=== PATIENT | male | born 1985 | race Two or more races ===

== ENCOUNTER 2017-11-06 05:18 | Inpatient (IN) | payer OTHER ==
[2017-11-06] VITALS (16 sets, daily range): BP systolic 124–167; BP diastolic 60–87
[~2017-11-06] VITALS: Ht 172.7 cm; Wt 88.5 kg
[2017-11-06] MEDS ORDERED: GABAPENTIN400 MG ORAL (06:13)
[2017-11-06] MEDS ORDERED: OXYBUTYNIN CHLOR5 M1 ORAL (06:13)
[2017-11-06] MEDS ORDERED: Neostigmine 1mg/ml 10ml Inj ONE ×2 (06:36→07:00)
[2017-11-06] MEDS ORDERED: EPINEPHrine 1mg/1ml Amp ONE (06:59)
[2017-11-06] MEDS ORDERED: Thrombin 5000 units TOPIC ONE (06:59)
[2017-11-06] MEDS ORDERED: LR 1000ml 1,000 ML IVLG SCH (06:59)
[2017-11-06] MEDS ORDERED: DiphenhydrAMINE 50mg/ml Inj IVP PRN ×2 (07:00→13:30)
[2017-11-06] MEDS ORDERED: Propofol 1,000mg/ 100ml btl IV ONE (07:00)
[2017-11-06] MEDS ORDERED: Norco 5mg/325mg tab ORAL PRN (07:00)
[2017-11-06] MEDS ORDERED: fentaNYL 100 mcg/2 mL IV PRN (07:00)
[2017-11-06] MEDS ORDERED: Zemuron 50mg/5ml Inj IV ONE (07:00)
[2017-11-06] MEDS ORDERED: Midazolam 2mg/2ml Inj IVP PRN (07:00)
[2017-11-06] MEDS ORDERED: fentaNYL 100 mcg/2 mL IV ONE (07:00)
[2017-11-06] MEDS ORDERED: LR 1000ml ONE (07:00)
[2017-11-06] MEDS ORDERED: Labetalol 5mg/ml 20ml vial IV PRN (07:00)
[2017-11-06] MEDS ORDERED: oxyCODONE HCL/Acetaminophen 5/325mg ORAL PRN (07:00)
[2017-11-06] MEDS ORDERED: Atropine Inj 1mg/10ml Syr IV PRN (07:00)
[2017-11-06] MEDS ORDERED: Lidocaine 1% MPF 10mg/ml 5ml ONE (07:00)
[2017-11-06] MEDS ORDERED: NS Irrig 1000ml ONE (07:00)
[2017-11-06] MEDS ORDERED: Sterile Water Irrig 1000ml IRRIG ONE (07:00)
[2017-11-06] MEDS ORDERED: HYDROcodone/Acetamin 7.5/325 tab ORAL PRN (07:00)
[2017-11-06] MEDS ORDERED: Thrombin 5000 units spray kit TOPIC ONE (07:00)
[2017-11-06] MEDS ORDERED: Bupivacaine 0.5% Inj 30 ml vial INJ ONE ×2 (07:00→07:06)
[2017-11-06] MEDS ORDERED: Glycopyrrolate 0.2mg/ml 1ml Vial ONE (07:00)
[2017-11-06] MEDS ORDERED: Ketorolac 30mg Inj IV PRN ×2 (07:00)
[2017-11-06] MEDS ORDERED: LORazepam Inj 2mg/ml 1ml IV PRN (07:00)
[2017-11-06] MEDS ORDERED: Dexamethasone 4mg/ml vial ONE (07:00)
[2017-11-06] MEDS ORDERED: Lidocaine 1% Plain 30 ml INJ ONE (07:00)
--- NOTE | 2017-11-06 07:02 | Anethesia Preoperative Eval ---
Anesthesia Pre-op PMH/ROS General Date of Evaluation: Nov 06, 2017 Time of Evaluation: 07:41 Anesthesiologist: Linda ASA Score: ASA 3 Mallampati Score Class I : Soft palate, uvula, fauces, pillars visible Class II: Soft palate, uvula, fauces visible Class III: Soft palate, base of uvula visible Class IV: Only hard plate visible Mallampati Classification: Class II Surgeon: Nestor Diagnosis: Neck Pain Surgical Procedure: Posterior C6-7 Screw Remova Anesthesia History: none Family History: no anesthesia problems Allergies: Coded Allergies: No Known Allergies (Unverified , 11/05/17) Medications: see eMAR Past Medical History Neurologic/Psychiatric: Reports: other - Paraplegic Other: obesity - BMI 30 PSxH Narrative: C/S SX Anesthesia Pre-op Phys. Exam Physician Exam Last Vital Signs Date Time Temp Pulse Resp B/P (MAP) Pulse Ox O2 Delivery O2 Flow Rate FiO2 11/06/17 06:01 97.8 57 18 124/60 98 Room Air Constitutional: NAD Neurologic: CN 2-12 intact Cardiovascular: RRR Respiratory: CTA Gastrointestinal: S/NT/ND Airway Exam Mallampati Score: Class II MO: full ROM: limited Teeth: intact Anesthesia Pre-op A/P Risk Assessment & Plan Assessment: ASA 3 Plan: GA, BIS, GlideScope Status Change Before Surgery: No Pre-Antibiotics Dru Grams Ancef IV Given Within 1 Hr of Incision: Yes Time Given: 08:06 Donell Mckeon MD Nov 06, 2017 07:02
[2017-11-06] MEDS ORDERED: Gelfoam Absorbable 1gm powder pkt TOPIC ONE (07:06)
--- NOTE | 2017-11-06 07:47 | Pre-Procedure Note/Attestation ---
Pre-Procedure Note/Attestation Complete Prior to Procedure Planned Procedure: bilateral Procedure Narrative: removal of hardware. possible fusion Indications for Procedure Pre-Operative Diagnosis: loose instrumentation Attestation I attest that I discussed the nature of the procedure; its benefits; risks and complications; and alternatives (and the risks and benefits of such alternatives ), prior to the procedure, with the patient (or the patient's legal pest control service representative). I attest that, if there was a reasonable possibility of needing a blood transfusion, the patient (or the patient's legal pest control service representative) was given the [facility] standardized written summary, pursuant to the [place] Blood Safety Act ([place] Health and Safety Code # 1645, as amended). I attest that I re-evaluated the patient just prior to the surgery and that there has been no change in the patient's H&P, except as documented below: JODY BROWER Nov 06, 2017 07:47
[2017-11-06] MEDS ORDERED: Bacitracin 50000 Units Vial ONE (08:04)
[2017-11-06] MEDS ORDERED: Bacitracin Oint 15gm Tube TOPIC ONE (08:04)
--- NOTE | 2017-11-06 08:53 | Immediate Post-Op Evaluation ---
Immediate Post-Op Evalulation Immediate Post-Op Evalulation Procedure: Posterior C6-7 Screw Removal Date of Evaluation: Nov 06, 2017 Time of Evaluation: 11:18 IV Fluids: 1100LR Blood Products: 0 Estimated Blood Loss: 25 Urinary Output: 200 Blood Pressure Systolic: 156 Blood Pressure Diastolic: 81 Pulse Rate: 78 Respiratory Rate: 16 O2 Sat by Pulse Oximetry: 97 Temperature (Fahrenheit): 97.1 Pain Score (1-10): 2 Nausea: No Vomiting: No Complications 0 Patient Status: awake, reacts, patent, extubated, none Hydration Status: adequate Dru Grams Ancef IV Given Within 1 Hr of Incision: Yes Time Given: 08:06 Donell Mckeon MD Nov 06, 2017 08:53
--- NOTE | 2017-11-06 11:08 | Brief Operative Note ---
Immediate Post Operative Note Operative Note Chief Complaint: R arm and shoulder pain Pre-op Diagnosis: loose instrumentation Procedure: Maco C7 screws removal and C6-7 on-lay fusion Post-op Diagnosis: Loose instrumentation Post-op Diagnosis: same as pre-op Findings: consistent w/pre-op dx studies Surgeon: Maki Brower Plant Attendant: Dia Reddy Anesthesiologist: Amberly Cabezas Anesthesia: general Specimen: none Complications: none Condition: stable Fluids: IVF Estimated Blood Loss: minimal Drains: none Implant(s) used?: Yes JODY BROWER Nov 06, 2017 11:08
[2017-11-06] MEDS: Hydromorphone 0.5mg/0.5ml inj IVP PRN ×3 (11:52→12:44)
[2017-11-06] MEDS ORDERED: Hydromorphone 0.5mg/0.5ml inj IVP PRN (13:30)
[2017-11-06] MEDS ORDERED: Chloraseptic Spray 20mL Bottle ORAL PRN (15:30)
[2017-11-06] MEDS ORDERED: HYDROmorphone 1mg/ml Carpuject IVP ONE (15:30)
[2017-11-06] MEDS: HYDROmorphone 1mg/ml Carpuject IVP PRN ×2 (15:41→21:17)
--- NOTE | 2017-11-06 15:41 | Diagnostic Imaging Report ---
Indication: Pain, intraoperative Technique: Intraoperative images Comparison: none Findings: Initial images demonstrate posterior fusion hardware extending from C4 through C7, anterior fusion hardware extending from C4 through C6 with ankylosis of the intervening disc. Subsequent images demonstrate removal of the C7 pedicle screws and intervening rods Impression: Intraoperative imaging, as described
[2017-11-06] MEDS ORDERED: Dronabinol 2.5mg Cap ORAL ONE (15:45)
[2017-11-06] MEDS ORDERED: Dronabinol 2.5mg Cap ORAL SCH (16:00)
[2017-11-06] MEDS ORDERED: Chloraseptic Spray 20mL Bottle ORAL ONE (16:00)
[2017-11-06] MEDS: ceFAZolin sod 1 GM in NS 55 ML IV SCH (17:34)
[2017-11-06] MEDS: LR 1000ml 1,000 ML IV SCH (17:35)
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
[2017-11-07] VITALS: BP 114/57
[2017-11-07] MEDS: ceFAZolin sod 1 GM in NS 55 ML IV SCH ×2 (00:50→11:50)
[2017-11-07] MEDS: HYDROmorphone 1mg/ml Carpuject IVP PRN ×3 (01:01→06:21)
[2017-11-07] MEDS ORDERED: Dronabinol 2.5mg Cap ORAL SCH (03:45)
[2017-11-07 04:00] VITALS: BP 100/52
[2017-11-07 08:00] VITALS: BP 111/57
[2017-11-07] MEDS: oxyCODONE 5mg IR tab ORAL PRN ×2 (09:07→20:20)
[2017-11-07] MEDS: Oxybutynin 5mg tab ORAL SCH ×3 (09:07→18:49)
[2017-11-07] MEDS ORDERED: PERCOCET 10-321 EAC1 PO (10:38)
[2017-11-07] MEDS: Hydromorphone 0.5mg/0.5ml inj IVP PRN ×2 (11:50→15:37)
[2017-11-07 12:00] VITALS: BP 92/49
[2017-11-07] MEDS: LR 1000ml 1,000 ML IV SCH (13:54)
[2017-11-07 16:00] VITALS: BP 96/51
[2017-11-07] MEDS ORDERED: Tubing IV Secondary IV ONE (21:14)
[2017-11-08 09:00] VITALS: BP 100/52
--- NOTE | 2017-11-08 09:00 | 48 Hour Post Anesthesia Eval ---
Post Anesthesia Evaluation Procedure: Posterior C6-7 Screw Removal Date of Evaluation: Nov 07, 2017 Time of Evaluation: 08:23 Blood Pressure Systolic: 100 0: 52 Pulse Rate: 64 Respiratory Rate: 19 Temperature (Fahrenheit): 98.6 O2 Sat by Pulse Oximetry: 98 Airway: patent Nausea: No Vomiting: No Pain Intensity: 2 Hydration Status: adequate Cardiopulmonary Status: Stable Mental Status/LOC: patient returned to baseline Follow-up Care/Observations: 0 Post-Anesthesia Complications: 0 Follow-up care needed: ready to discharge Donell Mckeon MD Nov 08, 2017 09:00
--- NOTE | 2017-11-08 10:42 | Discharge Summary ---
Discharge Summary Hospital Course Date of Admission Nov 06, 2017 at 05:18 Date of Discharge Nov 07, 2017 at 21:15 Admitting Diagnosis HPI Wesly Brunson is a 32 year old male who was admitted on Nov 06, 2017 at 05:18 for C6-7 Non Fusion Lower Screws Hospital Course [id number] Discharge Discharge Disposition Patient was discharged to Home (01) Discharge Diagnoses: Philomena Sanchez NP Nov 08, 2017 10:41
--- NOTE | 2017-11-08 12:55 | Progress Note ---
DATE: 11/07/2017 ACUTE PAIN MANAGEMENT PHYSICIAN PROGRESS NOTE MEDICATIONS: Medication administration record reviewed. Medications include Chloraseptic spray, Protonix, Roxicodone, Ditropan, Neurontin, Benadryl, Catapres and Mylanta. LABORATORY STUDIES: No interval laboratory studies. OBJECTIVE: VITAL SIGNS: Afebrile, pulse 58, respirations 19, blood pressure 111/57, and oxygen saturation 97% on room air. I spent over 60 minutes in consultation today. I saw the patient at bedside. I discussed the case with the surgeon, Dr. Baez. I spoke with the physical therapist and the nurse RNVasile . Overall, the patient is progressing well after his neck surgery. The patient's baseline neurologic status is intact. The patient is paraplegic with very limited movement of his upper extremities preoperatively. The posterior neck dressing is clean and dry. The patient is swallowing, breathing, and phonating within normal limits. The patient's pain levels are well managed on his current analgesic plan. A prescription was left for outpatient usage. The Rodriguez catheter remains in place to ease urinary voiding here in the hospital. At home, the patient's mother and family regularly straight catheterization the patient's bladder. The patient is alert and oriented x3. The patient is requesting to discharge home and the charge nurse, RNTabby will help arrange for home transportation for this wheelchair-bound patient. The patient will follow up in the outpatient clinic per Dr. Baez's schedule. Burke Horton M.D. DR: HOA JOB#: [id number] CC:
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
--- NOTE | 2017-11-09 01:00 | Discharge Summary 2 SIG ---
DATE OF ADMISSION: 11/06/2017 DATE OF DISCHARGE: 11/07/2017 BRIEF HOSPITAL COURSE: The patient is a 32-year-old paraplegic wheelchair-bound gentleman, who was admitted on 11/06/2017 and underwent bilateral C7 screw removal and C6-C7 onlay fusion on 11/06/[address] Baez. Postoperatively, he was seen by Dr. Horton for postop pain management. He was given incentive spirometry and was placed on Protonix for GI prophylaxis. He was placed on postop cervical diet. He was seen by physical therapy. Rodriguez catheter was removed. The patient was eventually discharged home. FINAL DIAGNOSES: 1. Right arm and shoulder pain with loose instrumentation status post bilateral C7 screw removal and C6-C7 onlay fusion. 2. Paraplegia. DISPOSITION: The patient was discharged home. DISCHARGE MEDICATIONS: Refer to medication list. DISCHARGE INSTRUCTIONS: Follow up with surgeon in a week. Emilie Baez M.D. I have been assigned to dictate discharge summary on this account and I was not involved in the patient's management. Philomena Sanchez N.P. DR: TROY JOB#: [id number] CC:
--- NOTE | 2017-11-09 03:30 | Discharge Summary ---
DATE OF ADMISSION: 11/06/2017 DATE OF DISCHARGE: 11/07/2017 ATTENDING PHYSICIAN AND SURGEON: Emilie Baez M.D. CONSULTING PHYSICIAN: Burke Horton M.D., Pain Management. ADMITTING DIAGNOSIS: Cervical spine pain with loose instrumentation. POSTOPERATIVE DIAGNOSIS: Cervical spine pain with loose instrumentation, status post revision surgery. HOSPITAL COURSE: The patient was admitted on 11/06/2017 for elective revision posterior cervical spine surgery with removal of hardware for pain. The patient underwent surgery with Dr. Baez and assisting doctor, Dr. Reddy without complications. After the operating room procedure, the patient was transferred to the recovery room where the patient did well and was then transferred to the Orthopedic Surgery floor. The patient had serial monitoring and routine nursing care. The patient's pain was adequately controlled and his vital signs are stable. He was discharged back to home to the care of his mother and family via [facility]. There were no complications. Burke Horton M.D. DR: HAZEL JOB#: [id number] CC:
--- NOTE | 2017-11-21 19:19 | History & Physical ---
History and Physical History & Physicial the patient called and said that there was drainage from the cervical wound. We asked him to come to the ER right away and he came in today around noon. He was seen by the ER doctor and was sent for an MRI with and without contrast and blood work. He was admitted and was given a dose of Vanco abx. I saw him tonight and he is afebrile and comfortable. His neuro exam is as usual and moves his upper extremities as usual. His Right arm pain is resolved. His wound appears to have minimal serosengous fluid (No Puss noted. No infection smell). There is superficial wound surface appears raw with the scab removed. The wound is not open other than a small part at the lower part that with pressure expresses serosngous bloody fluid. No redness in the skin outside of the wound area. A/P The patient is Afeb and VSS. Neuro intact. His WBC is 12.5 and high Neutrophils. We will culture any fluid from the wound and place patient on vanco/zosyn and observe tonight. MRI showed some small fluid collection epi- facia and no deep enhancement. The radiologist report was also reviewed. DVT studies were done as well and pending official report but preliminary impression was neg. Appreciate Dr. Tang's input as well. JODY BROWER Nov 21, 2017 19:19
== END 2017-11-07 21:15 | disposition home or self-care (01) | DRG 472 ==
LOC: SDSOVERFLO 05:18 → 3E 13:48
PROC: 0RG10J1 Fusion of Cervical Vertebral Joint with Synthetic Substitute, Posterior Approach, Posterior Column, Open Approach (ICD-10-PCS; principal; 2017-11-06 07:30)
PROC: 0RP104Z Removal of Internal Fixation Device from Cervical Vertebral Joint, Open Approach (ICD-10-PCS; principal; 2017-11-06 07:30)
PROC: 4A11X4G Monitoring of Peripheral Nervous Electrical Activity, Intraoperative, External Approach (ICD-10-PCS; principal; 2017-11-06 07:30)
DX: T84.226A Displacement of internal fixation device of vertebrae, initial encounter (principal); G82.20 Paraplegia, unspecified; Z99.3 Dependence on wheelchair; N31.9 Neuromuscular dysfunction of bladder, unspecified; Y83.8 Other surgical procedures as the cause of abnormal reaction of the patient, or of later complication, without mention of misadventure at the time of the procedure; Y92.89 Other specified places as the place of occurrence of the external cause; E66.9 Obesity, unspecified; Z68.30 Body mass index [BMI] 30.0-30.9, adult
CPT/HCPCS: 36415; 72040; 76001; 86850; 86900; 86901; 87081; 94003; 94150; J2405; J2710

== ENCOUNTER 2017-11-21 11:21 | Inpatient (IN) | payer OTHER ==
[~2017-11-21] VITALS: Ht 172.7 cm; Wt 88.5 kg
[~2017-11-21 11:21] MED LIST: GABAPENTIN400 MG ORAL; OXYBUTYNIN CHLOR5 M1 ORAL; PERCOCET 10-321 EAC1 PO
[2017-11-21] MEDS ORDERED: Ampicillin/Sulbactam Sod 3 GM in NS 110 ML IVPB ONE (13:15)
[2017-11-21] MEDS ORDERED: Vancomycin 1.5gm/D5W 250ml 250 ML IVPB ONE (13:15)
[2017-11-21] MEDS ORDERED: Unasyn 3gm Inj ONE (13:17)
--- NOTE | 2017-11-21 13:32 | Emergency Room Report ---
History of Present Illness General Chief Complaint: Skin Rash/Abscess Source: Patient Present Illness HPI 32-year-old male presents with "possible infection" to area of procedure on November 06. Surgery port her review of EMR was evaluation of "elective revision posterior cervical spine surgery with removal of hardware for pain." Known paraplegia, wheelchair bound. Endorses subjective chills at home No pain to site Foul smelling yellow/bloody discharge noted on wound dressing change Not on Abx Allergies: Coded Allergies: No Known Allergies (Unverified , 11/05/17) Patient History Past Medical History: other - paraplegia Past Surgical History: none Pertinent Family History: none Social History: Denies: smoking, alcohol use, drug use Immunizations: UTD Reviewed Nursing Documentation: PMH: Agreed, PSxH: Agreed Nursing Documentation-PMH Past Medical History: No Stated History Hx Cardiac Problems: No Hx Cancer: No Hx Gastrointestinal Problems: No Hx Neurological Problems: Yes Hx Paralysis: Yes - bilateral lower extremities;bilateral hands Hx Spinal Cord Injury: Yes Review of Systems All Other Systems: negative except mentioned in HPI Physical Exam Vital Signs Date Time Temp Pulse Resp B/P (MAP) Pulse Ox O2 Delivery O2 Flow Rate FiO2 11/21/17 11:28 73 17 115/80 98 Room Air Sp02 EP Interpretation: reviewed, normal General Appearance: normal inspection, well appearing, no apparent distress, alert, GCS 15, non-toxic, other - Wheelchair bound Head: normocephalic, atraumatic Eyes: bilateral eye PERRL, bilateral eye EOMI ENT: normal ENT inspection, hearing grossly normal, normal pharynx, no angioedema, normal voice, TMs + canals normal, uvula midline, moist mucus membranes Neck: normal inspection, full range of motion, supple, thyroid normal, no meningismus, no bony tend Respiratory: normal inspection, lungs clear, normal breath sounds, no rhonchi, no respiratory distress, no retraction, no accessory muscle use, no wheezing, speaking full sentences Cardiovascular #1: regular rate, rhythm, no edema, no JVD, normal capillary refill Gastrointestinal: normal inspection, normal bowel sounds, non tender, soft, no mass, no peritonitis, non-distended, no guarding, no hernia, no pulsatile mass Genitourinary: no CVA tenderness Musculoskeletal: normal inspection, back normal, normal range of motion, no calf tenderness, pelvis stable, Crystal's Sign negative Neurologic: normal inspection, alert, oriented x3, responsive, senior system operator III-XII nml as tested, cerebellar normal, normal gait, speech normal Psychiatric: normal inspection, judgement/insight normal, mood/affect normal, no suicidal/homicidal ideation, no delusions Skin: other - Posterior neck: dressing removed, soaked in yellowish/bloody foul smelling discharge. Wound itself warm to touch. No active oozing with pressure to wound. Patient has ttp lateral/left of wound site Lymphatic: normal inspection, no adenopathy Medical Decision Making Diagnostic Impression: Primary Impression: Wound infection after surgery Qualified Codes: T81.4XXA - Infection following a procedure, initial encounter ER Course VSS, afebrile Labs: Leuks 12K. Spoke to Dr Baez, surgeon, also agrees with admission for IV Abx Recommends MRI which is pending Recommends endorsement to Dr Tang, which was done for med/surg admit at 230pm Empiric Abx given Last Vital Signs Date Time Temp Pulse Resp B/P (MAP) Pulse Ox O2 Delivery O2 Flow Rate FiO2 11/21/17 11:28 73 17 115/80 98 Room Air Status: improved Disposition: ADMITTED INPATIENT Condition: Serious Referrals: NOT CHOSEN IPA/,REFERRING (PCP) LAKESHA GANDARA M.D. Nov 21, 2017 13:32
[2017-11-21 13:51] LABS: BASOPHILS % (AUTO) 1.1 % (0.0-2.0); EOSINOPHILS % (AUTO) 2.7 % (0.0-3.0); HEMATOCRIT 43.6 % (42.0-52.0); HEMOGLOBIN 14.5 G/DL (14.2-18.0); LYMPHOCYTES % (AUTO) 15.4 % (20.0-45.0); MEAN CORPUSCULAR VOLUME 92 FL (80-99); MONOCYTES % (AUTO) 5.6 % (1.0-10.0); NEUTROPHILS % (AUTO) 75.3 % (45.0-75.0); PLATELET COUNT 284 K/UL (150-450); RED BLOOD COUNT 4.73 M/UL (4.70-6.10); RED CELL DISTRIBUTION WIDTH 11.7 % (11.6-14.8); WHITE BLOOD COUNT 12.3 K/UL (4.8-10.8)
[2017-11-21 14:04] VITALS: BP 115/80
[2017-11-21 14:11] LABS: ANION GAP 9 mmol/L (5-15); BLOOD UREA NITROGEN 10 mg/dL (7-18); CALCIUM 9.4 MG/DL (8.5-10.1); CARBON DIOXIDE 27 MMOL/L (21-32); CHLORIDE 100 MMOL/L (98-107); CREATININE 0.6 MG/DL (0.55-1.30); POTASSIUM 3.9 MMOL/L (3.5-5.1); SODIUM 136 MMOL/L (136-145)
[2017-11-21 14:22] LABS: ALANINE AMINOTRANSFERASE 21 U/L (12-78); ALBUMIN 3.3 G/DL (3.4-5.0); ALBUMIN/GLOBULIN RATIO 0.6 (1.0-2.7); ALKALINE PHOSPHATASE 72 U/L (46-116); ASPARTATE AMINO TRANSFERASE 18 U/L (15-37); BILIRUBIN,TOTAL 1.4 MG/DL (0.2-1.0)
[2017-11-21 14:27] LABS: BILIRUBIN,DIRECT 0.2 MG/DL (0.0-0.3)
[2017-11-21] MEDS ORDERED: Morphine Sulfate 4mg/ml Inj ONE (16:12)
[2017-11-21] MEDS ORDERED: Morphine Sulfate 4mg/ml Inj IVP ONE (16:15)
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
[2017-11-21 16:26] VITALS: BP 118/80
[2017-11-21] MEDS ORDERED: DiphenhydrAMINE 50mg/ml Inj IVP ONE (17:00)
[2017-11-21] MEDS ORDERED: DiphenhydrAMINE 50mg/ml Inj ONE (17:02)
--- NOTE | 2017-11-21 19:49 | History and Physical ---
History of Present Illness General Date patient seen: Nov 21, 2017 Time patient seen: 19:41 Reason for Hospitalization: possible cellulitis nad or wound infection Present Illness HPI this is an unfortunate mlae withhistoryfo inijury getting paropaplegic seen in my office early october for preop for removal of posterior hardware instrument has been having wound discharge denies fever or chills preior to admit but states has chilles now no cough unablrt to feel his bladder has intermitent catherization for urinary retention PMH: paraplegic multiple surgeries neurogenic bladder PSH: cervical fusion removal of posterior haerdware socialhistory: being caredfor by his brother and mother he needs maximum assist on transffer Allergies: Coded Allergies: MORPHINE (Verified Allergy, Unknown, 11/21/17) Medication History Scheduled Gabapentin* (Gabapentin*), 400 MG ORAL THREE TIMES A DAY, (Reported) Oxybutynin Chloride (Oxybutynin Chloride), 5 MG ORAL TID, (Reported) Scheduled PRN Oxycodone HCl/Acetaminophen (Percocet 10-325 mg Tablet), 0.5-1 EACH PO EVERY 4 HOURS PRN for For Pain, (Reported) Patient History History Provided By: Patient Healthcare decision maker Resuscitation status Advanced Directive on File No Review of Systems Eye: Reports: no symptoms Cardiovascular: Reports: no symptoms Gastrointestinal: Reports: no symptoms Skin: Reports: no symptoms Physical Exam General Appearance: other - [id number] HEENT: normocephalic, atraumatic, PERRL Neck: other - posterior wound has a slhgt dehisence no pus noted. Respiratory/Chest: lungs clear Cardiovascular/Chest: normal rate, no JVD Abdomen: soft Extremities: non-pitting Last 24 Hour Vital Signs Date Time Temp Pulse Resp B/P (MAP) Pulse Ox O2 Delivery O2 Flow Rate FiO2 11/21/17 17:07 98.0 11/21/17 16:33 98.0 89 16 118/80 98 Room Air 11/21/17 16:26 89 16 118/80 98 Room Air 11/21/17 14:04 87 17 115/80 98 Room Air 11/21/17 11:28 73 17 115/80 98 Room Air Laboratory Tests Test 11/21/17 13:30 White Blood Count 12.3 K/UL (4.8-10.8) H Red Blood Count 4.73 M/UL (4.70-6.10) Hemoglobin 14.5 G/DL (14.2-18.0) Hematocrit 43.6 % (42.0-52.0) Mean Corpuscular Volume 92 FL (80-99) Mean Corpuscular Hemoglobin 30.6 PG (27.0-31.0) Mean Corpuscular Hemoglobin Concent 33.1 G/DL (32.0-36.0) Red Cell Distribution Width 11.7 % (11.6-14.8) Platelet Count 284 K/UL (150-450) Mean Platelet Volume 6.7 FL (6.5-10.1) Neutrophils (%) (Auto) 75.3 % (45.0-75.0) H Lymphocytes (%) (Auto) 15.4 % (20.0-45.0) L Monocytes (%) (Auto) 5.6 % (1.0-10.0) Eosinophils (%) (Auto) 2.7 % (0.0-3.0) Basophils (%) (Auto) 1.1 % (0.0-2.0) Sodium Level 136 MMOL/L (136-145) Potassium Level 3.9 MMOL/L (3.5-5.1) Chloride Level 100 MMOL/L (98-107) Carbon Dioxide Level 27 MMOL/L (21-32) Anion Gap 9 mmol/L (5-15) Blood Urea Nitrogen 10 mg/dL (7-18) Creatinine 0.6 MG/DL (0.55-1.30) Estimat Glomerular Filtration Rate > 60 mL/min (>60) Glucose Level 72 MG/DL (74-106) L Calcium Level 9.4 MG/DL (8.5-10.1) Total Bilirubin 1.4 MG/DL (0.2-1.0) H Direct Bilirubin 0.2 MG/DL (0.0-0.3) Aspartate Amino Transf (AST/SGOT) 18 U/L (15-37) Alanine Aminotransferase (ALT/SGPT) 21 U/L (12-78) Alkaline Phosphatase 72 U/L (46-116) Total Protein 8.4 G/DL (6.4-8.2) H Albumin 3.3 G/DL (3.4-5.0) L Globulin 5.1 g/dL Albumin/Globulin Ratio 0.6 (1.0-2.7) L Height (Feet): 5 Height (Inches): 8.00 Weight (Pounds): 195 Assessment/Plan Status Narrative impression: this is an unfortunate male with postop sound deheiscence adn might have infection seen and examined him with the surgon start him on broad spectrum antibiotc qill get culture and follow wiound culture bloo dculture tylenol prn fever dvt prophyalxis with heparin 5000 bid diouplex done follow lqabs iv fluid to be given will monitor examined patient with lev vasquez in the room culture was obtained fromthe wound x2 will follow vincent and vanco iv adn follow AUTUMN BARDALES Nov 21, 2017 19:49
[2017-11-21 20:00] VITALS: BP_SYST 108; BP_SYST 121; BP_DIAS 64; BP_DIAS 68
[2017-11-21] MEDS ORDERED: DiphenhydrAMINE 50mg/ml Inj IVP PRN (20:00)
[2017-11-21] MEDS: NS w/KCl 20mEq 1,000 ML IV SCH (21:41)
[2017-11-21] MEDS: Vancomycin 1gm/D5W 275ml IVPB SCH ×2 (21:43)
[2017-11-21] MEDS: Heparin 5000 units/ml inj SUBQ SCH (21:46)
[2017-11-22] VITALS: BP 100/55
[2017-11-22] MEDS: Piperacillin/Tazobactam 3.375 GM in NS 110 ML IVPB SCH ×4 (00:24→23:26)
[2017-11-22] MEDS: Vancomycin 1gm/D5W 275ml IVPB SCH ×8 (05:57→21:06)
[2017-11-22 07:10] LABS: APPEARANCE,URINE CLEAR; BILIRUBIN, URINE NEGATIVE (NEGATIVE); GLUCOSE, URINE (UA) NEGATIVE (NEGATIVE); KETONES,URINE 1+ (NEGATIVE); LEUKOCYTE ESTERASE ,URINE 2+ (NEGATIVE); NITRITE,URINE NEGATIVE (NEGATIVE); PH,URINE 5 (4.5-8.0); PROTEIN,URINE 1+ (NEGATIVE); UROBILINOGEN,URINE NORMAL MG/DL (0.0-1.0)
[2017-11-22 07:40] LABS: COLOR,URINE YELLOW
[2017-11-22 08:14] LABS: BASOPHILS % (AUTO) 0.5 % (0.0-2.0); EOSINOPHILS % (AUTO) 2.8 % (0.0-3.0); HEMATOCRIT 38.6 % (42.0-52.0); HEMOGLOBIN 13.1 G/DL (14.2-18.0); LYMPHOCYTES % (AUTO) 11.3 % (20.0-45.0); MEAN CORPUSCULAR VOLUME 92 FL (80-99); MONOCYTES % (AUTO) 7.2 % (1.0-10.0); NEUTROPHILS % (AUTO) 78.2 % (45.0-75.0); PLATELET COUNT 286 K/UL (150-450); RED CELL DISTRIBUTION WIDTH 11.8 % (11.6-14.8); WHITE BLOOD COUNT 11.1 K/UL (4.8-10.8)
[2017-11-22 08:30] LABS: ANION GAP 6 mmol/L (5-15); BLOOD UREA NITROGEN 8 mg/dL (7-18); CALCIUM 8.9 MG/DL (8.5-10.1); CARBON DIOXIDE 29 MMOL/L (21-32); CHLORIDE 102 MMOL/L (98-107); CREATININE 0.7 MG/DL (0.55-1.30); POTASSIUM 3.6 MMOL/L (3.5-5.1); SODIUM 137 MMOL/L (136-145)
[2017-11-22 09:00] VITALS: BP 121/57
[2017-11-22] MEDS: Oxybutynin 5mg tab ORAL SCH ×3 (09:49→17:03)
[2017-11-22] MEDS: NS w/KCl 20mEq 1,000 ML IV SCH ×2 (09:49→21:07)
[2017-11-22] MEDS: Lactobacillus-GG tablet ORAL SCH ×3 (09:49→17:03)
[2017-11-22] MEDS: Heparin 5000 units/ml inj SUBQ SCH ×2 (09:51→21:04)
[2017-11-22] MEDS ORDERED: NS 500ML ONE (11:16)
[2017-11-22] MEDS ORDERED: Tubing IV Secondary IV ONE (11:16)
[2017-11-22 12:00] VITALS: BP 117/60
--- NOTE | 2017-11-22 15:46 | Wound Care Consultation ---
Wound Assessment Wound Assessment #1: Wound Number: 1 Wound Present on Admission: Yes New Wound: No Status Change of Wound: No Wound Location Body Site Modif: left, posterior Wound Location Body Site: thigh Wound Type: erosion Lynnette Test: Does not Lynnette Wound Thickness: Partial Thickness Wound Length: 9.0 Wound Width: 9.0 Wound Depth: less than 0.1 Percent of Wound [place]/Red: 100 Wound Drainage Description: Serosanguineous Wound Drainage Amount: Scant Wound Drainage Odor: None/Absent Tissue Surrounding Wound: Denuded Wound General Appearance: Reddened, Draining Wound Assessment #2: Wound Number: 2 Wound Present on Admission: Yes New Wound: No Status Change of Wound: No Wound Location Body Site Modif: right, posterior Wound Location Body Site: thigh Wound Type: erosion Lynnette Test: Does not Lynnette Wound Thickness: Partial Thickness Wound Length: 9.5 Wound Width: 9.0 Wound Depth: less than 0.1 Percent of Wound [place]/Red: 100 Wound Drainage Description: Serosanguineous Wound Drainage Amount: Scant Wound Drainage Odor: None/Absent Tissue Surrounding Wound: Denuded Wound General Appearance: Reddened, Draining Wound Assessment #3: Wound Number: 3 Wound Present on Admission: Yes New Wound: No Status Change of Wound: No Wound Location Body Site Modif: left, right Wound Location Body Site: toe Wound Type: other - s/p ingrown nails removal Lynnette Test: Does not Lynnette Wound Thickness: Full Thickness Percent of Wound [place]/Red: 100 Wound Drainage Description: [place] Wound Drainage Amount: Moderate Wound Drainage Odor: None/Absent Tissue Surrounding Wound: Indurated Wound General Appearance: Reddened, Draining Wound Comment #1 Left and right posterior thigh Denuded skin #2 Perineal florian with erosion #3 Left and right 1st toe s/p ingrown nail removal, open wound. Recommendation -Left and right posterior thigh. Cleanse with saline, pat dry, apply Triad cream, cover with Bordered gauze daily and PRN soiled/dislodged -Podiatry consult for left and right s/p ingrown nail removal, open wound -Keep clean and dry -Turn and reposition -Offload both heels -Optimize nutrition -Heel protector on both heels -Low air loss mattress -Assess and f/u accordingly for any changes TOD NAVAS RN Nov 22, 2017 15:46
[2017-11-22 16:00] VITALS: BP 116/61
[2017-11-22] MEDS: Vitamin A&D Oint 2oz Tube TOPIC SCH (17:03)
--- NOTE | 2017-11-22 19:48 | General Progress Note ---
Assessment/Plan Status Narrative wound dehiscence with drainge clear await culture result seen him yesterday with dr vasquez will await culture resutl will get ID antibiotic with vanco zosyn probbiotic dvt prophyalxis alos has asymptomatic pyuria difficult to know when to treat s this type of patients have pyuria due to self catherizing wwillfollow await further spine recommendation regarding the wound Subjective Date patient seen: Nov 22, 2017 Time patient seen: 19:44 Allergies: Coded Allergies: MORPHINE (Verified Allergy, Unknown, 11/21/17) Subjective has been having slihgt chills no chestpain no nausea no vomiting Objective Last 24 Hour Vital Signs Date Time Temp Pulse Resp B/P (MAP) Pulse Ox O2 Delivery O2 Flow Rate FiO2 11/22/17 16:00 97.9 60 18 116/61 97 11/22/17 14:18 95.2 11/22/17 13:19 95.2 11/22/17 12:00 95.2 48 17 117/60 98 11/22/17 09:00 97.8 63 17 121/57 96 11/22/17 00:24 100.0 11/22/17 00:00 99.0 91 16 100/55 99 Nasal Cannula 2.0 11/21/17 21:42 99.9 11/21/17 21:30 100.9 11/21/17 20:00 100.6 92 18 108/68 97 Room Air 11/21/17 20:00 99.9 76 20 121/64 97 Room Air Intake and Output 11/21/17 11/22/17 19:00 07:00 Intake Total 120 ml 1275.001 ml Output Total 800 ml Balance 120 ml 475.001 ml Intake Oral 120 ml 240 ml IV Total 1035.001 ml Output Urine Total 800 ml # Voids 100 Laboratory Tests 11/22/17 07:00: White Blood Count 11.1H, Red Blood Count 4.20L, Hemoglobin 13.1L, Hematocrit 38.6L, Mean Corpuscular Volume 92, Mean Corpuscular Hemoglobin 31.1H, Mean Corpuscular Hemoglobin Concent 33.9, Red Cell Distribution Width 11.8, Platelet Count 286, Mean Platelet Volume 6.6, Neutrophils (%) (Auto) 78.2H, Lymphocytes ( %) (Auto) 11.3L, Monocytes (%) (Auto) 7.2, Eosinophils (%) (Auto) 2.8, Basophils (%) (Auto) 0.5, Sodium Level 137, Potassium Level 3.6, Chloride Level 102, Carbon Dioxide Level 29, Anion Gap 6, Blood Urea Nitrogen 8, Creatinine 0.7 , Estimat Glomerular Filtration Rate > 60, Glucose Level 116H, Calcium Level 8.9 11/22/17 13:50: Vancomycin Level Trough 11.6 Height (Feet): 5 Height (Inches): 8.00 Weight (Pounds): 195 Objective lying in the bed removed the dressing with nursing staff has a clear drainge no odor to it cvta s1,s2,rrr hjas an yuval lamb as well AUTUMN BARDALES Nov 22, 2017 19:48
[2017-11-23 04:53] VITALS: BP 111/57
[2017-11-23] MEDS: Vancomycin 1gm/D5W 275ml IVPB SCH ×6 (05:28→21:09)
[2017-11-23 08:00] VITALS: BP 96/56
[2017-11-23 08:38] LABS: BASOPHILS % (AUTO) 0.8 % (0.0-2.0); EOSINOPHILS % (AUTO) 4.1 % (0.0-3.0); HEMATOCRIT 35.5 % (42.0-52.0); HEMOGLOBIN 12.1 G/DL (14.2-18.0); LYMPHOCYTES % (AUTO) 18.4 % (20.0-45.0); MEAN CORPUSCULAR VOLUME 91 FL (80-99); MONOCYTES % (AUTO) 9.7 % (1.0-10.0); PLATELET COUNT 244 K/UL (150-450); RED BLOOD COUNT 3.89 M/UL (4.70-6.10); RED CELL DISTRIBUTION WIDTH 11.5 % (11.6-14.8); WHITE BLOOD COUNT 8.1 K/UL (4.8-10.8)
[2017-11-23 08:50] LABS: ANION GAP 7 mmol/L (5-15); BLOOD UREA NITROGEN 8 mg/dL (7-18); CALCIUM 8.6 MG/DL (8.5-10.1); CARBON DIOXIDE 26 MMOL/L (21-32); CHLORIDE 106 MMOL/L (98-107); CREATININE 0.8 MG/DL (0.55-1.30); POTASSIUM 3.6 MMOL/L (3.5-5.1); SODIUM 138 MMOL/L (136-145)
[2017-11-23] MEDS: Oxybutynin 5mg tab ORAL SCH ×3 (08:53→18:41)
[2017-11-23] MEDS: Lactobacillus-GG tablet ORAL SCH ×3 (08:53→18:41)
[2017-11-23] MEDS: Piperacillin/Tazobactam 3.375 GM in NS 110 ML IVPB SCH ×2 (08:53→16:53)
[2017-11-23] MEDS: Vitamin A&D Oint 2oz Tube TOPIC SCH ×2 (08:54→21:10)
[2017-11-23] MEDS: Heparin 5000 units/ml inj SUBQ SCH ×2 (08:55→21:12)
--- NOTE | 2017-11-23 12:38 | General Progress Note ---
Assessment/Plan Status Narrative wound dhiesence ?gram neagtive rods in kahlil osund awiat final culture will get id and spine to see patient. discussed with Dr clark Subjective Date patient seen: Nov 23, 2017 Time patient seen: 12:37 Allergies: Coded Allergies: MORPHINE (Verified Allergy, Unknown, 11/21/17) Subjective wound is till oozing fluid no fever has some chills Objective Last 24 Hour Vital Signs Date Time Temp Pulse Resp B/P (MAP) Pulse Ox O2 Delivery O2 Flow Rate FiO2 11/23/17 08:00 97.8 65 18 96/56 100 Room Air 11/23/17 04:53 100 Room Air 11/23/17 04:53 100 Room Air 11/23/17 04:53 97.8 54 17 111/57 100 11/22/17 22:19 97.9 11/22/17 21:22 97.9 11/22/17 16:00 97.9 60 18 116/61 97 11/22/17 13:19 95.2 Intake and Output 11/22/17 11/23/17 19:00 07:00 Intake Total 800 ml 1440.000 ml Output Total 500 ml 1200 ml Balance 300 ml 240.000 ml Intake Oral 450 ml 480 ml IV Total 350 ml 960.000 ml Output Urine Total 500 ml 1200 ml Laboratory Tests 11/22/17 13:50: Vancomycin Level Trough 11.6 11/23/17 08:04: White Blood Count 8.1, Red Blood Count 3.89L, Hemoglobin 12.1L, Hematocrit 35.5L , Mean Corpuscular Volume 91, Mean Corpuscular Hemoglobin 31.1H, Mean Corpuscular Hemoglobin Concent 34.1, Red Cell Distribution Width 11.5L, Platelet Count 244, Mean Platelet Volume 7.2, Neutrophils (%) (Auto) 67.0, Lymphocytes (%) (Auto) 18.4L, Monocytes (%) (Auto) 9.7, Eosinophils (%) (Auto) 4.1H, Basophils (%) (Auto) 0.8, Sodium Level 138, Potassium Level 3.6, Chloride Level 106, Carbon Dioxide Level 26, Anion Gap 7, Blood Urea Nitrogen 8, Creatinine 0.8, Estimat Glomerular Filtration Rate > 60, Glucose Level 104, Calcium Level 8.6 Height (Feet): 5 Height (Inches): 8.00 Weight (Pounds): 195 Objective has draingae on the wound cta s1,s2,rrr soft impression: ATUUMN BARDALES Nov 23, 2017 12:38
[2017-11-23] MEDS: NS w/KCl 20mEq 1,000 ML IV SCH (13:35)
[2017-11-23 16:00] VITALS: BP 110/63
[2017-11-23 20:32] VITALS: BP 120/66
[2017-11-24] MEDS: Piperacillin/Tazobactam 3.375 GM in NS 110 ML IVPB SCH ×4 (00:24→23:27)
[2017-11-24] MEDS: NS w/KCl 20mEq 1,000 ML IV SCH ×2 (02:22→16:23)
[2017-11-24 04:00] VITALS: BP 108/68
[2017-11-24] MEDS: Vancomycin 1gm/D5W 275ml IVPB SCH ×6 (06:08→21:04)
[2017-11-24 06:21] LABS: ANION GAP 7 mmol/L (5-15); BLOOD UREA NITROGEN 5 mg/dL (7-18); CALCIUM 8.7 MG/DL (8.5-10.1); CARBON DIOXIDE 30 MMOL/L (21-32); CHLORIDE 106 MMOL/L (98-107); CREATININE 0.9 MG/DL (0.55-1.30); SODIUM 143 MMOL/L (136-145)
[2017-11-24 08:00] VITALS: BP 115/57
[2017-11-24] MEDS: Oxybutynin 5mg tab ORAL SCH ×3 (08:24→17:57)
[2017-11-24] MEDS: Lactobacillus-GG tablet ORAL SCH ×3 (08:25→17:57)
[2017-11-24] MEDS: Vitamin A&D Oint 2oz Tube TOPIC SCH ×2 (08:26→21:03)
[2017-11-24] MEDS: Heparin 5000 units/ml inj SUBQ SCH ×2 (08:28→21:00)
[2017-11-24 09:07] VITALS: BP 115/57
[2017-11-24 12:01] VITALS: BP 115/62
[2017-11-24 16:55] VITALS: BP 121/62
[2017-11-24 20:00] VITALS: BP 132/67
--- NOTE | 2017-11-24 21:39 | General Progress Note ---
Assessment/Plan Status Narrative woundinfection still draining await id adn surgeon further rec to have i and d and washoout nad will follow likely the intraoperative cultures will be affected as he is on antibiotic also has vre colonization Subjective Date patient seen: Nov 24, 2017 Time patient seen: 21:38 Constitutional: Reports: no symptoms HEENT: Reports: no symptoms Cardiovascular: Reports: no symptoms Allergies: Coded Allergies: MORPHINE (Verified Allergy, Unknown, 11/21/17) Subjective wound is till oozing fluid no fever has some chills Objective Last 24 Hour Vital Signs Date Time Temp Pulse Resp B/P (MAP) Pulse Ox O2 Delivery O2 Flow Rate FiO2 11/24/17 20:00 99.4 53 21 132/67 95 11/24/17 16:55 98.3 69 20 121/62 96 Room Air 11/24/17 12:01 98.2 60 20 115/62 94 Room Air 11/24/17 09:07 98.5 55 20 115/57 93 Room Air 11/24/17 08:00 98.5 58 19 115/57 98 11/24/17 04:00 97.9 58 19 108/68 98 Intake and Output 11/23/17 11/24/17 19:00 07:00 Intake Total 1625 ml 480 ml Output Total 1200 ml 1300 ml Balance 425 ml -820 ml Intake Oral 800 ml 480 ml IV Total 825 ml Output Urine Total 1200 ml 1300 ml Laboratory Tests 11/24/17 05:30: Sodium Level 143, Potassium Level 4.0, Chloride Level 106, Carbon Dioxide Level 30, Anion Gap 7, Blood Urea Nitrogen 5L, Creatinine 0.9, Estimat Glomerular Filtration Rate > 60, Glucose Level 91, Calcium Level 8.7 Height (Feet): 5 Height (Inches): 8.00 Weight (Pounds): 195 General Appearance: WD/WN Cardiovascular: normal peripheral pulses, normal rate Respiratory/Chest: chest wall non-tender, lungs clear Objective has draingae on the wound cta s1,s2,rrr soft impression: AUTUMN BARDALES Nov 24, 2017 21:39
[2017-11-25] VITALS (12 sets, daily range): BP systolic 110–126; BP diastolic 58–85
[2017-11-25] MEDS: NS w/KCl 20mEq 1,000 ML IV SCH ×2 (05:00→17:54)
[2017-11-25] MEDS: Vancomycin 1gm/D5W 275ml IVPB SCH ×4 (05:02→14:00)
[2017-11-25] MEDS ORDERED: Bupivacaine 0.5% Inj 30 ml vial INJ ONE (07:06)
[2017-11-25] MEDS ORDERED: Thrombin 5000 units TOPIC ONE (07:06)
[2017-11-25] MEDS ORDERED: Lidocaine 1% 10mg/ml/EPI 0.01mg/ml 50ml INJ ONE (07:06)
[2017-11-25] MEDS ORDERED: Surgicel 4in x 8in TOPIC ONE (07:06)
[2017-11-25] MEDS ORDERED: Bacitracin 50000 Units Vial ONE ×2 (07:07→10:11)
[2017-11-25] MEDS ORDERED: Gelfoam Absorbable 1gm powder pkt TOPIC ONE (07:07)
[2017-11-25] MEDS ORDERED: Vancomycin 1gm inj IVPB ONE (07:07)
[2017-11-25] MEDS ORDERED: Thrombin 5000 units spray kit TOPIC ONE (07:07)
[2017-11-25] MEDS: Piperacillin/Tazobactam 3.375 GM in NS 110 ML IVPB SCH ×3 (08:00→23:59)
--- NOTE | 2017-11-25 08:37 | Pre-Procedure Note/Attestation ---
Pre-Procedure Note/Attestation Complete Prior to Procedure Planned Procedure: not applicable Procedure Narrative: Patient with post operative wound infection. Need for wash out Indications for Procedure Pre-Operative Diagnosis: Posterior cervical wound infections Attestation I attest that I discussed the nature of the procedure; its benefits; risks and complications; and alternatives (and the risks and benefits of such alternatives ), prior to the procedure, with the patient (or the patient's legal wire rope sales representative). I attest that, if there was a reasonable possibility of needing a blood transfusion, the patient (or the patient's legal wire rope sales representative) was given the [facility] standardized written summary, pursuant to the [place] Blood Safety Act ([place] Health and Safety Code # 1645, as amended). I attest that I re-evaluated the patient just prior to the surgery and that there has been no change in the patient's H&P, except as documented below: DUNCAN GARCIA M.D. Nov 25, 2017 08:37
[2017-11-25] MEDS: Heparin 5000 units/ml inj SUBQ SCH ×2 (09:00→22:18)
[2017-11-25] MEDS: Oxybutynin 5mg tab ORAL SCH ×3 (09:00→17:32)
[2017-11-25] MEDS ORDERED: Sterile Water Irrig 1000ml IRRIG ONE (09:00)
[2017-11-25] MEDS: Lactobacillus-GG tablet ORAL SCH ×3 (09:00→17:32)
[2017-11-25] MEDS ORDERED: Zemuron 50mg/5ml Inj IV ONE (09:00)
[2017-11-25] MEDS ORDERED: NS Irrig 1000ml ONE (09:00)
[2017-11-25] MEDS ORDERED: fentaNYL 100 mcg/2 mL IV ONE (09:00)
[2017-11-25] MEDS ORDERED: Midazolam 2mg/2ml Inj ONE (09:00)
[2017-11-25] MEDS: Vitamin A&D Oint 2oz Tube TOPIC SCH ×2 (09:00→22:03)
[2017-11-25] MEDS ORDERED: Glycopyrrolate 0.2mg/ml 1ml Vial ONE (09:00)
[2017-11-25] MEDS ORDERED: Neostigmine 1mg/ml 10ml Inj ONE ×2 (09:00→10:11)
[2017-11-25] MEDS ORDERED: Propofol 200mg/20ml IV ONE (09:00)
[2017-11-25] MEDS ORDERED: LR 1000ml ONE (09:00)
[2017-11-25] MEDS ORDERED: Bacitracin Oint 15gm Tube TOPIC ONE (10:24)
[2017-11-25] MEDS ORDERED: LR 1000ml 1,000 ML IVLG SCH (10:27)
[2017-11-25] MEDS ORDERED: DiphenhydrAMINE 50mg/ml Inj IVP PRN (10:30)
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
--- NOTE | 2017-11-25 10:37 | Immediate Post-Op Evaluation ---
Immediate Post-Op Evalulation Immediate Post-Op Evalulation Procedure: I&D cervical incisional wound Date of Evaluation: Nov 25, 2017 Time of Evaluation: 11:10 IV Fluids: 700 Urinary Output: 100 Blood Pressure Systolic: 121 Blood Pressure Diastolic: 62 Pulse Rate: 54 Respiratory Rate: 20 O2 Sat by Pulse Oximetry: 96 Temperature (Fahrenheit): 97.7 Pain Score (1-10): 0 Nausea: No Vomiting: No Complications No complication Patient Status: awake, patent, extubated, none Hydration Status: adequate Drug: Ancef Given Within 1 Hr of Incision: Yes Time Given: 09:35 YAYO JEFFREY M.D. Nov 25, 2017 10:37
--- NOTE | 2017-11-25 10:51 | Operative Note - PDOC ---
Operative Note Operative Note Pre-op Diagnosis: Posterior cervical wound infections Post-op Diagnosis: same as pre-op Surgeon: Maureen Anesthesiologist: Chet Anesthesia: general Specimen: yes Complications: none Condition: stable Estimated Blood Loss: minimal Drains: none Implant(s) used?: No - Posterior Cervical wound washour and revision of wound Indications for Procedure Suspected infection Description of Procedure Posterior wound wash and revision of wound DUNCAN GARCIA M.D. Nov 25, 2017 10:51
[2017-11-25] MEDS: Hydromorphone 0.5mg/0.5ml inj IVP PRN ×2 (11:29→11:48)
[2017-11-25] MEDS ORDERED: ceFAZolin sod 1 GM in NS 55 ML IVPB SCH (17:00)
--- NOTE | 2017-11-25 17:54 | General Progress Note ---
Assessment/Plan Status Narrative wound infection s/p i and d doign well on ancef and zosyn will follow Subjective Date patient seen: Nov 25, 2017 Time patient seen: 17:52 Constitutional: Reports: no symptoms HEENT: Reports: no symptoms Cardiovascular: Reports: no symptoms Respiratory: Reports: no symptoms Allergies: Coded Allergies: MORPHINE (Verified Allergy, Unknown, 11/21/17) Subjective wound is till oozing fluid no fever has some chills Objective Last 24 Hour Vital Signs Date Time Temp Pulse Resp B/P (MAP) Pulse Ox O2 Delivery O2 Flow Rate FiO2 11/25/17 17:33 97.2 11/25/17 15:26 97.2 51 20 124/85 95 11/25/17 14:21 97.9 11/25/17 12:56 97.9 11/25/17 12:30 97.9 49 18 120/63 98 Nasal Cannula 3.0 11/25/17 12:15 48 17 121/67 97 Nasal Cannula 3.0 11/25/17 12:00 50 18 119/68 98 Nasal Cannula 3.0 11/25/17 11:48 45 20 126/61 95 Nasal Cannula 3.0 11/25/17 11:48 97.7 11/25/17 11:29 49 20 119/58 95 Simple Mask 8.0 11/25/17 11:15 58 20 115/62 95 Simple Mask 8.0 11/25/17 11:03 55 20 111/70 95 Simple Mask 8.0 11/25/17 11:03 207.9 54 20 96 11/25/17 10:58 97.7 56 20 121/62 95 Simple Mask 8.0 11/25/17 04:00 98.6 68 18 110/63 96 11/25/17 00:00 98.3 66 21 116/60 98 11/24/17 20:00 99.4 53 21 132/67 95 Intake and Output 11/24/17 11/25/17 19:00 07:00 Intake Total 550 ml 275.000 ml Output Total 1450 ml 1650 ml Balance -900 ml -1375.000 ml Intake Oral 550 ml IV Total 275.000 ml Output Urine Total 1450 ml 1650 ml Laboratory Tests 11/24/17 21:55: Prothrombin Time 10.3, Prothromb Time International Ratio 1.0, Activated Partial Thromboplast Time 29 Height (Feet): 5 Height (Inches): 8.00 Weight (Pounds): 195 General Appearance: WD/WN EENT: PERRL/EOMI Neck: non-tender Cardiovascular: normal rate Respiratory/Chest: lungs clear Objective has draingae on the wound cta s1,s2,rrr soft impression: AUTUMN BARDALES Nov 25, 2017 17:54
[2017-11-25] MEDS: Linezolid 600mg/300mL Premix IVPB SCH (21:36)
[2017-11-25] MEDS: HYDROmorphone 1mg/ml Carpuject IVP PRN (21:51)
[2017-11-26] VITALS: BP 120/70
[2017-11-26 04:00] VITALS: BP 126/80
[2017-11-26] MEDS: NS w/KCl 20mEq 1,000 ML IV SCH ×2 (05:48→21:49)
[2017-11-26] MEDS: HYDROmorphone 1mg/ml Carpuject IVP PRN ×2 (05:51→09:06)
[2017-11-26 08:29] VITALS: BP 129/73
[2017-11-26] MEDS: Oxybutynin 5mg tab ORAL SCH ×3 (08:34→17:46)
[2017-11-26] MEDS: Lactobacillus-GG tablet ORAL SCH ×3 (08:34→17:46)
[2017-11-26] MEDS: Piperacillin/Tazobactam 3.375 GM in NS 110 ML IVPB SCH ×2 (08:43→17:04)
[2017-11-26] MEDS: Heparin 5000 units/ml inj SUBQ SCH ×2 (08:51→21:48)
[2017-11-26] MEDS: Linezolid 600mg/300mL Premix IVPB SCH ×2 (09:36→21:50)
--- NOTE | 2017-11-26 10:31 | 48 Hour Post Anesthesia Eval ---
Post Anesthesia Evaluation Procedure: I&D cervical incisional wound Date of Evaluation: Nov 26, 2017 Time of Evaluation: 10:36 Blood Pressure Systolic: 129 0: 73 Pulse Rate: 50 Respiratory Rate: 20 Temperature (Fahrenheit): 98.4 O2 Sat by Pulse Oximetry: 94 Airway: patent Nausea: No Vomiting: No Pain Intensity: 1 Hydration Status: adequate Cardiopulmonary Status: Stable Mental Status/LOC: patient returned to baseline Follow-up Care/Observations: 0 Post-Anesthesia Complications: 0 Follow-up care needed: N/A Donell Mckeon MD Nov 26, 2017 10:31
[2017-11-26 11:50] VITALS: BP 118/70
[2017-11-26] MEDS: Vitamin A&D Oint 2oz Tube TOPIC SCH ×2 (11:53→21:55)
[2017-11-26] MEDS ORDERED: Heparin 2000 units/Ns 1000ml INJ ONE (13:00)
[2017-11-26] MEDS ORDERED: Lidocaine 1% MPF 10mg/ml 5ml INJ SCH (13:30)
[2017-11-26] MEDS ORDERED: Lidocaine 1% Plain 30 ml INJ ONE (14:00)
--- NOTE | 2017-11-26 14:31 | General Progress Note ---
Assessment/Plan Status Narrative impression: id seen opatint to get piccline nad follow Subjective Date patient seen: Nov 26, 2017 Allergies: Coded Allergies: MORPHINE (Verified Allergy, Unknown, 11/21/17) Subjective wound igeting picc line Objective Last 24 Hour Vital Signs Date Time Temp Pulse Resp B/P (MAP) Pulse Ox O2 Delivery O2 Flow Rate FiO2 11/26/17 11:50 98.2 56 20 118/70 97 11/26/17 10:31 209.1 50 20 94 11/26/17 09:36 98.2 11/26/17 08:29 98.4 50 20 129/73 94 11/26/17 04:00 97.8 54 21 126/80 95 11/26/17 00:00 Room Air 11/26/17 00:00 98.2 55 21 120/70 97 11/25/17 20:00 Room Air 11/25/17 20:00 98.2 56 21 111/59 96 11/25/17 18:32 97.2 11/25/17 17:33 97.2 11/25/17 15:26 97.2 51 20 124/85 95 Intake and Output 11/25/17 11/26/17 19:00 07:00 Intake Total 1435.0 ml 185.0 ml Output Total 1300 ml 1500 ml Balance 135.0 ml -1315.0 ml Intake Oral 380 ml IV Total 1055.0 ml 185.0 ml Output Urine Total 1300 ml 1500 ml vitals reviewed Height (Feet): 5 Height (Inches): 8.00 Weight (Pounds): 195 Objective has draingae on the wound cta s1,s2,rrr soft impression: AUTUMN BARDALES Nov 26, 2017 14:31
--- NOTE | 2017-11-26 15:23 | Diagnostic Imaging Report ---
Indications: Needs long-term IV access Technique: Ultrasound confirms patent compressible left basilic vein. Total sterile technique, including sterile probe cover and sterile gel, hat, mask,, sterile gown, large sterile drape, and preparation with 2% chlorhexidine utilized. Local anesthesia with 1% lidocaine. Under real-time ultrasound guidance, puncture basilic vein using 21-gauge needle, documented and archived, passage 0.018 guidewire under direct fluoroscopy, which was used to determine appropriate catheter length, exchange for 5 Portuguese peel-away sheath. 5 Portuguese or dual-lumen power PICC cut to 42 cm. It was inserted through the peel-away sheath. Peel-away sheath and guidewire removed. Catheter fixed to the skin. Both catheter ports aspirated and flushed. Patient tolerated procedure well, without immediate complication. Digital radiograph documents satisfactory catheter tip position, at the cavoatrial junction. Total fluoroscopy time 0.7 minutes. Total dose area product 23 dGycm2 Impression: Successful placement of left arm PICC under sonographic and fluoroscopic guidance, as described above.
[2017-11-26 16:00] VITALS: BP 127/95
--- NOTE | 2017-11-26 17:30 | Consultation ---
DATE OF CONSULTATION: 11/26/2017 INFECTIOUS DISEASES CONSULTATION CONSULTING PHYSICIAN: Lyssa Christian M.D. REFERRING PHYSICIAN: Burke Tang M.D. REASON FOR CONSULTATION: Cervical wound infection. HISTORY OF PRESENTING ILLNESS: This is a 32-year-old gentleman with history of paraplegia, neurogenic bladder, status post cervical fusion who came in with cervical wound infection. He has undergone a washout and revision of the wound, and an Infectious Diseases consultation has been obtained for antibiotics. PAST MEDICAL HISTORY: 1. History of paraplegia. 2. History of neurogenic bladder. 3. Status post cervical fusion with removal of hardware. MEDICATIONS: As an inpatient, he is on linezolid, Dilaudid, Percocet, vitamin A and D, Lotrimin, Lactobacillus, Ditropan, Zosyn, gabapentin, subcutaneous heparin, Tylenol, Zofran, and Benadryl. ALLERGIES: He is allergic to morphine. SOCIAL HISTORY: He does not smoke, drink, or use drugs. FAMILY HISTORY: Noncontributory. REVIEW OF SYSTEMS: RESPIRATORY: No fever. He does have chills. No cough. No shortness of breath or chest pain. CARDIAC: No chest pain. No palpitations. No dizziness. No syncope. GASTROINTESTINAL: He does have nausea and vomiting. No abdominal pain or diarrhea. PHYSICAL EXAMINATION: VITAL SIGNS: Temperature of 98.4 degrees, T-max of 98.4 degrees, pulse of 50, respiratory rate 20, blood pressure 129/73, and O2 saturation of 94%. HEENT: Pupils equally reactive to light and accommodation. Mouth appears clean without thrush. NECK: On the back, is in dressings with sanguinous drainage. No adenopathy. No JVD. CARDIOVASCULAR: Regular rate and rhythm. No murmurs. LUNGS: Clear to auscultation bilaterally. No crackles. No wheezes. ABDOMEN: Soft and nontender. No organomegaly. EXTREMITIES: No cyanosis, no clubbing, and no edema. LABORATORY AND DIAGNOSTIC DATA: White count of 12.3 on 09/20/2017 and on 11/23/2017, white count of 8.1, hemoglobin 12.1, hematocrit 35.5, MCV 91, and platelet count of 244 with neutrophils of 67%. Sodium 143, potassium 4, chloride 106, bicarbonate 30, BUN 5, creatinine 0.9, and glucose 91. Calcium 8.7. On 11/21/2017, total bilirubin 1.4, direct bilirubin 0.2, AST 18, ALT 21, alkaline phosphatase 72, total protein 8.4 and albumin 3.3. UA showing 5 to 10 white cells. Rectal swab was positive for VRE. Nasal swab was negative for MRSA. On 11/22/2017, urine cultures are negative. On 11/21/2017, wound culture is growing Acinetobacter, which is susceptible to ciprofloxacin, piperacillin and tazobactam, and Bactrim. Pseudomonas is susceptible to cefepime, Cipro, imipenem, and piperacillin and tazobactam. Enterococcus is ampicillin and vancomycin susceptible. Coagulase-negative Staph. MRI of the cervical spine showing 2.3 x 2.2 x 3 cm extra fascial subcutaneous fluid collection posterior to the lower part of the cervical spine surgery. Anterior posterior fusion hardware noted. ASSESSMENT: This is a 32-year-old gentleman with history of paraplegia, neurogenic bladder, status post cervical spine fusion, who comes in with cervical wound infection with Acinetobacter, Pseudomonas, enterococcus, and coagulase-negative Staphylococcus. He has been refusing vancomycin trough. PLAN: 1. Continue linezolid and Zosyn in the hospital. 2. The patient needs long-term antibiotics with IV vancomycin and ceftazidime on discharge. 3. We will order a PICC line. I would like to thank Dr. Burke Tang for this consultation. Lyssa Christian M.D. DR: VIPUL JOB#: [id number] CC: Burke Tang M.D.; Fax#: [phone]
[2017-11-26 20:00] VITALS: BP 122/80
[2017-11-26] MEDS: Dyna-Hex 2% Top Sol 2oz TOPIC SCH (21:53)
[2017-11-27] VITALS: BP 116/72
[2017-11-27] MEDS: Piperacillin/Tazobactam 3.375 GM in NS 110 ML IVPB SCH ×3 (00:11→16:15)
[2017-11-27 04:00] VITALS: BP 119/64
[2017-11-27 08:12] VITALS: BP 130/81
[2017-11-27] MEDS: Heparin 5000 units/ml inj SUBQ SCH ×2 (09:00→21:48)
[2017-11-27] MEDS: Oxybutynin 5mg tab ORAL SCH ×3 (09:31→18:01)
[2017-11-27] MEDS: Vitamin A&D Oint 2oz Tube TOPIC SCH ×2 (09:31→21:49)
[2017-11-27] MEDS: Lactobacillus-GG tablet ORAL SCH ×3 (09:31→18:01)
[2017-11-27] MEDS: NS w/KCl 20mEq 1,000 ML IV SCH (09:43)
[2017-11-27] MEDS: Linezolid 600mg/300mL Premix IVPB SCH ×2 (09:44→21:47)
[2017-11-27 12:15] VITALS: BP 134/76
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
[2017-11-27 16:00] VITALS: BP 130/70
[2017-11-27 20:00] VITALS: BP 130/61
--- NOTE | 2017-11-27 20:15 | General Progress Note ---
Assessment/Plan Status Narrative wound infection doing better await culture and willfollow Subjective Date patient seen: Nov 27, 2017 Time patient seen: 20:14 Constitutional: Reports: no symptoms HEENT: Reports: no symptoms Respiratory: Reports: no symptoms Allergies: Coded Allergies: MORPHINE (Verified Allergy, Unknown, 11/21/17) Subjective wound igeting picc line Objective Last 24 Hour Vital Signs Date Time Temp Pulse Resp B/P (MAP) Pulse Ox O2 Delivery O2 Flow Rate FiO2 11/27/17 16:00 98.5 52 20 130/70 98 98.5 11/27/17 12:15 98.4 96 22 134/76 99 Room Air 98.4 11/27/17 08:12 98.9 73 21 130/81 98 Room Air 98.9 11/27/17 04:00 Room Air 11/27/17 04:00 97.9 50 20 119/64 100 97.9 11/27/17 00:00 Room Air 11/27/17 00:00 97.8 50 19 116/72 96 97.8 Intake and Output 11/26/17 11/27/17 19:00 07:00 Intake Total 1310 ml 561.0 ml Output Total 1800 ml Balance 1310 ml -1239.0 ml Intake Oral 560 ml IV Total 750 ml 561.0 ml Output Urine Total 1800 ml # Voids 1 Height (Feet): 5 Height (Inches): 8.00 Weight (Pounds): 195 General Appearance: WD/WN EENT: PERRL/EOMI Neck: other - wound is covered Cardiovascular: normal rate, regular rhythm Respiratory/Chest: lungs clear Objective has draingae on the wound cta s1,s2,rrr soft impression: AUTUMN BARDALES Nov 27, 2017 20:15
[2017-11-27] MEDS ORDERED: Chloraseptic Spray 20mL Bottle ORAL PRN (21:00)
[2017-11-27] MEDS: Dyna-Hex 2% Top Sol 2oz TOPIC SCH (21:47)
--- NOTE | 2017-11-27 21:56 | Diagnostic Imaging Report ---
APPROVED REPORT CPT Code: 05734 Present Symptoms Comments: R/O DVT Comments Technically difficult/limited visualization due atrophied state caused by paralysis and patients inability to position legs. BILATERAL: Imaging reveals a patent deep venous system bilaterally. There is no evidence of thrombus within the femoral, popliteal or right tibial segments. The greater saphenous veins are also within normal limits. Doppler indicates normal spontaneous flow within these segments. The left tibial segments were not well visualized.
[2017-11-28] VITALS: BP 116/58
[2017-11-28] MEDS: NS w/KCl 20mEq 1,000 ML IV SCH ×3 (00:35→23:40)
[2017-11-28] MEDS: Piperacillin/Tazobactam 3.375 GM in NS 110 ML IVPB SCH ×4 (00:35→23:40)
[2017-11-28 04:00] VITALS: BP 129/69
[2017-11-28 08:20] VITALS: BP 129/78
[2017-11-28] MEDS: Oxybutynin 5mg tab ORAL SCH ×3 (09:50→19:08)
[2017-11-28] MEDS: Heparin 5000 units/ml inj SUBQ SCH ×2 (09:50→21:05)
[2017-11-28] MEDS: Lactobacillus-GG tablet ORAL SCH ×3 (09:51→19:08)
[2017-11-28] MEDS: Linezolid 600mg/300mL Premix IVPB SCH ×2 (09:51→21:03)
[2017-11-28] MEDS: Vitamin A&D Oint 2oz Tube TOPIC SCH ×2 (09:51→21:03)
--- NOTE | 2017-11-28 11:35 | Infectious Diseases Prog Note ---
"Assessment/Plan Assessment/Plan antibiotics : linezolid, zosyn A 1. cervical wound infection with acenitobacter | pseudomonas | enterococcus | coag neg staph s/p washout 2. s/p C spine fusion 3. paraplegia P 1. continue linezolid, zosyn in hospital 2. iv vancomycin, ceftazidime on discharge 38 more days 3. will follow up cultures Subjective Constitutional: Denies: fever, chills Respiratory: Denies: shortness of breath, dry cough Gastrointestinal/Abdominal: Denies: nausea, vomiting, diarrhea Musculoskeletal: Reports: pain - decreased Allergies: Coded Allergies: MORPHINE (Verified Allergy, Unknown, 11/21/17) Objective Vital Signs Last 24 Hour Vital Signs Date Time Temp Pulse Resp B/P (MAP) Pulse Ox O2 Delivery O2 Flow Rate FiO2 11/28/17 08:20 98.1 91 19 129/78 98 Room Air 98.1 11/28/17 04:00 99.1 51 19 129/69 96 Room Air 99.1 11/28/17 00:00 98.2 48 20 116/58 98 98.2 11/27/17 20:00 98.1 59 20 130/61 98 98.1 11/27/17 16:00 98.5 52 20 130/70 98 98.5 11/27/17 12:15 98.4 96 22 134/76 99 Room Air 98.4 Height (Feet): 5 Height (Inches): 8.00 Weight (Pounds): 195 Respiratory/Chest: lungs clear Cardiovascular: normal rate, regular rhythm, no gallop/murmur Abdomen: soft, non tender Extremities: no edema, other - left arm PICC Microbiology Date/Time Source Procedure Growth Status 11/26/17 12:50 Wound Gram Stain - Final Resulted 11/26/17 12:50 Aerobic Culture - Preliminary Gram Negative Bacillus 1 Staphylococcus Sp Coag Neg Resulted 11/26/17 12:50 Wound Anaerobic Culture Pending Resulted 11/25/17 12:30 Wound Gram Stain - Final Resulted 11/25/17 12:30 Aerobic Culture - Preliminary Pseudomonas Aeruginosa Resulted 11/25/17 12:30 Wound Anaerobic Culture Pending Resulted JAILYN COX Nov 28, 2017 11:35"
[2017-11-28 12:20] VITALS: BP 141/74
--- NOTE | 2017-11-28 14:30 | General Progress Note ---
Assessment/Plan Status Narrative wound infection requires skilled nursing antiiobit willfollow give natiobitoc dc planning await finial id recommendation Subjective Date patient seen: Nov 28, 2017 Time patient seen: 14:29 Constitutional: Reports: no symptoms HEENT: Reports: no symptoms Cardiovascular: Reports: no symptoms Allergies: Coded Allergies: MORPHINE (Verified Allergy, Unknown, 11/21/17) Subjective wound igeting picc line Objective Last 24 Hour Vital Signs Date Time Temp Pulse Resp B/P (MAP) Pulse Ox O2 Delivery O2 Flow Rate FiO2 11/28/17 12:20 97.8 52 18 141/74 Room Air 97.8 11/28/17 08:20 98.1 91 19 129/78 98 Room Air 98.1 11/28/17 04:00 99.1 51 19 129/69 96 Room Air 99.1 11/28/17 00:00 98.2 48 20 116/58 98 98.2 11/27/17 20:00 98.1 59 20 130/61 98 98.1 11/27/17 16:00 98.5 52 20 130/70 98 98.5 Intake and Output 11/27/17 11/28/17 19:00 07:00 Intake Total 270 ml 785.0 ml Output Total 1400 ml 1900 ml Balance -1130 ml -1115.0 ml Intake Oral 120 ml IV Total 150 ml 785.0 ml Output Urine Total 1400 ml 1900 ml Height (Feet): 5 Height (Inches): 8.00 Weight (Pounds): 195 General Appearance: WD/WN Neck: other - wound dressing inthe neck Cardiovascular: normal rate, no JVD Respiratory/Chest: lungs clear Objective has draingae on the wound cta s1,s2,rrr soft impression: AUTUMN BARDALES Nov 28, 2017 14:30
--- NOTE | 2017-11-28 16:18 | General Surgery Progress Note ---
General Surgery-Progress Note Subjective Reason for Consult Wound wash out Chief Complaint: No complaints at this time. Symptoms: improved, pain absent, tolerating diet Objective Last 24 Hour Vital Signs Date Time Temp Pulse Resp B/P (MAP) Pulse Ox O2 Delivery O2 Flow Rate FiO2 11/28/17 12:20 97.8 52 18 141/74 Room Air 97.8 11/28/17 08:20 98.1 91 19 129/78 98 Room Air 98.1 11/28/17 04:00 99.1 51 19 129/69 96 Room Air 99.1 11/28/17 00:00 98.2 48 20 116/58 98 98.2 11/27/17 20:00 98.1 59 20 130/61 98 98.1 I&O Intake and Output 11/27/17 11/28/17 19:00 07:00 Intake Total 270 ml 785.0 ml Output Total 1400 ml 1900 ml Balance -1130 ml -1115.0 ml Intake Oral 120 ml IV Total 150 ml 785.0 ml Output Urine Total 1400 ml 1900 ml Dressing: dry Drains: none Assessment Post-op Diagnosis Patient wound culture positive for Staph and Staph Plan Problems: (1) Wound infection after surgery Assessment & Plan: Patient s/p wound wash out for infection. Doing well. Currently with PICC line. Awaiting final ID recs and discharge Discussed follow-up with patient fo removal of sutures. DUNCAN GARCIA M.D. Nov 28, 2017 16:18
[2017-11-28 20:00] VITALS: BP 136/74
[2017-11-28] MEDS: Dyna-Hex 2% Top Sol 2oz TOPIC SCH (21:03)
[2017-11-29] VITALS: BP 136/73
[2017-11-29 04:00] VITALS: BP 120/69
[2017-11-29 07:16] LABS: BASOPHILS % (AUTO) 1.1 % (0.0-2.0); HEMATOCRIT 37.1 % (42.0-52.0); HEMOGLOBIN 12.7 G/DL (14.2-18.0); LYMPHOCYTES % (AUTO) 18.3 % (20.0-45.0); MEAN CORPUSCULAR VOLUME 89 FL (80-99); MONOCYTES % (AUTO) 7.6 % (1.0-10.0); NEUTROPHILS % (AUTO) 66.9 % (45.0-75.0); PLATELET COUNT 256 K/UL (150-450); RED BLOOD COUNT 4.17 M/UL (4.70-6.10); RED CELL DISTRIBUTION WIDTH 11.6 % (11.6-14.8); WHITE BLOOD COUNT 7.6 K/UL (4.8-10.8)
[2017-11-29 07:47] LABS: ANION GAP 5 mmol/L (5-15); BLOOD UREA NITROGEN 5 mg/dL (7-18); CALCIUM 8.7 MG/DL (8.5-10.1); CARBON DIOXIDE 31 MMOL/L (21-32); CHLORIDE 104 MMOL/L (98-107); CREATININE 0.8 MG/DL (0.55-1.30); POTASSIUM 3.9 MMOL/L (3.5-5.1); SODIUM 140 MMOL/L (136-145)
[2017-11-29 08:00] VITALS: BP 136/78
[2017-11-29] MEDS: Piperacillin/Tazobactam 3.375 GM in NS 110 ML IVPB SCH ×3 (08:09→23:54)
[2017-11-29] MEDS: Oxybutynin 5mg tab ORAL SCH ×3 (08:12→17:37)
[2017-11-29] MEDS: Lactobacillus-GG tablet ORAL SCH ×3 (08:13→17:37)
[2017-11-29] MEDS: Heparin 5000 units/ml inj SUBQ SCH ×2 (08:18→20:30)
[2017-11-29] MEDS: Linezolid 600mg/300mL Premix IVPB SCH ×2 (08:20→20:27)
[2017-11-29] MEDS: Vitamin A&D Oint 2oz Tube TOPIC SCH ×2 (08:21→20:27)
--- NOTE | 2017-11-29 08:31 | General Progress Note ---
Assessment/Plan Status Narrative wound infection awaits final culture of the wound will follow checo couch Subjective Date patient seen: Nov 29, 2017 Time patient seen: 08:29 Constitutional: Reports: no symptoms HEENT: Reports: throat swelling Cardiovascular: Reports: no symptoms Allergies: Coded Allergies: MORPHINE (Verified Allergy, Unknown, 11/21/17) Subjective wound igeting picc line Objective Last 24 Hour Vital Signs Date Time Temp Pulse Resp B/P (MAP) Pulse Ox O2 Delivery O2 Flow Rate FiO2 11/29/17 04:00 98.5 43 19 120/69 98 Room Air 98.5 11/29/17 00:00 98.5 48 19 136/73 98 Room Air 98.5 11/28/17 20:00 98.2 48 19 136/74 98 Room Air 98.2 11/28/17 12:20 97.8 52 18 141/74 Room Air 97.8 Intake and Output 11/28/17 11/29/17 19:00 07:00 Intake Total 930 ml 1122.5 ml Output Total 2300 ml 1300 ml Balance -1370 ml -177.5 ml Intake Oral 480 ml IV Total 450 ml 1122.5 ml Output Urine Total 2300 ml 1300 ml Laboratory Tests 11/29/17 06:23: White Blood Count 7.6, Red Blood Count 4.17L, Hemoglobin 12.7L, Hematocrit 37.1L , Mean Corpuscular Volume 89, Mean Corpuscular Hemoglobin 30.6, Mean Corpuscular Hemoglobin Concent 34.3, Red Cell Distribution Width 11.6, Platelet Count 256, Mean Platelet Volume 6.9, Neutrophils (%) (Auto) 66.9, Lymphocytes (% ) (Auto) 18.3L, Monocytes (%) (Auto) 7.6, Eosinophils (%) (Auto) 6.0H, Basophils (%) (Auto) 1.1, Sodium Level 140, Potassium Level 3.9, Chloride Level 104, Carbon Dioxide Level 31, Anion Gap 5, Blood Urea Nitrogen 5L, Creatinine 0.8, Estimat Glomerular Filtration Rate > 60, Glucose Level 73L, Calcium Level 8.7 Height (Feet): 5 Height (Inches): 8.00 Weight (Pounds): 195 General Appearance: WD/WN EENT: PERRL/EOMI Cardiovascular: normal rate, regular rhythm, no JVD Respiratory/Chest: lungs clear Abdomen: non tender, soft Objective has draingae on the wound cta s1,s2,rrr soft impression: AUTUMN BARDALES Nov 29, 2017 08:31
--- NOTE | 2017-11-29 11:51 | Infectious Diseases Prog Note ---
"Assessment/Plan Assessment/Plan antibiotics : linezolid, zosyn A 1. cervical wound infection with acenitobacter | pseudomonas | enterococcus | coag neg staph s/p washout 2. s/p C spine fusion 3. paraplegia P 1. continue linezolid, zosyn in hospital 2. iv vancomycin, ceftazidime on discharge 37 more days ( ordered with home health ) 3. cbc, bmp, lft, vancomycin level q weekly 4. will follow up cultures Subjective ROS Limited/Unobtainable: Yes Allergies: Coded Allergies: MORPHINE (Verified Allergy, Unknown, 11/21/17) Objective Vital Signs Last 24 Hour Vital Signs Date Time Temp Pulse Resp B/P (MAP) Pulse Ox O2 Delivery O2 Flow Rate FiO2 11/29/17 08:00 98.3 41 18 136/78 96 98.3 11/29/17 04:00 98.5 43 19 120/69 98 Room Air 98.5 11/29/17 00:00 98.5 48 19 136/73 98 Room Air 98.5 11/28/17 20:00 98.2 48 19 136/74 98 Room Air 98.2 11/28/17 12:20 97.8 52 18 141/74 Room Air 97.8 Height (Feet): 5 Height (Inches): 8.00 Weight (Pounds): 195 Respiratory/Chest: lungs clear Cardiovascular: normal rate, regular rhythm, no gallop/murmur Abdomen: soft, non tender Extremities: no edema, other - left arm PICC Microbiology Date/Time Source Procedure Growth Status 11/26/17 12:50 Wound Gram Stain - Final Resulted 11/26/17 12:50 Aerobic Culture - Preliminary Pseudomonas Aeruginosa Staphylococcus Sp Coag Neg Resulted 11/26/17 12:50 Wound Anaerobic Culture - Preliminary Resulted Laboratory Tests Test 11/29/17 06:23 White Blood Count 7.6 K/UL (4.8-10.8) Red Blood Count 4.17 M/UL (4.70-6.10) L Hemoglobin 12.7 G/DL (14.2-18.0) L Hematocrit 37.1 % (42.0-52.0) L Mean Corpuscular Volume 89 FL (80-99) Mean Corpuscular Hemoglobin 30.6 PG (27.0-31.0) Mean Corpuscular Hemoglobin Concent 34.3 G/DL (32.0-36.0) Red Cell Distribution Width 11.6 % (11.6-14.8) Platelet Count 256 K/UL (150-450) Mean Platelet Volume 6.9 FL (6.5-10.1) Neutrophils (%) (Auto) 66.9 % (45.0-75.0) Lymphocytes (%) (Auto) 18.3 % (20.0-45.0) L Monocytes (%) (Auto) 7.6 % (1.0-10.0) Eosinophils (%) (Auto) 6.0 % (0.0-3.0) H Basophils (%) (Auto) 1.1 % (0.0-2.0) Sodium Level 140 MMOL/L (136-145) Potassium Level 3.9 MMOL/L (3.5-5.1) Chloride Level 104 MMOL/L (98-107) Carbon Dioxide Level 31 MMOL/L (21-32) Anion Gap 5 mmol/L (5-15) Blood Urea Nitrogen 5 mg/dL (7-18) L Creatinine 0.8 MG/DL (0.55-1.30) Estimat Glomerular Filtration Rate > 60 mL/min (>60) Glucose Level 73 MG/DL (74-106) L Calcium Level 8.7 MG/DL (8.5-10.1) JAILYN COX Nov 29, 2017 11:51"
[2017-11-29 16:00] VITALS: BP 110/54
[2017-11-29] MEDS: NS w/KCl 20mEq 1,000 ML IV SCH (16:03)
[2017-11-29 20:00] VITALS: BP 126/71
[2017-11-29] MEDS: Dyna-Hex 2% Top Sol 2oz TOPIC SCH (20:27)
--- NOTE | 2017-11-29 23:32 | Wound Nurse Progress Note ---
Wound RN Progress Note Wound Consult #1 Left and right posterior thigh Denuded skin #2 Perineal florian with erosion #3 Left and right 1st toe s/p ingrown nail removal, open wound. Reassess this Pt. Good progress noted. will cont the same order and recommendation below Recommendation -Left and right posterior thigh. Cleanse with saline, pat dry, apply Triad cream, cover with Bordered gauze daily and PRN soiled/dislodged -Podiatry consult for left and right s/p ingrown nail removal, open wound -Keep clean and dry -Turn and reposition -Offload both heels -Optimize nutrition -Heel protector on both heels -Low air loss mattress -Assess and f/u accordingly for any changes TOD NAVAS RN Nov 29, 2017 23:32
[2017-11-30] VITALS: BP 121/73
[2017-11-30 04:00] VITALS: BP 128/70
[2017-11-30] MEDS: NS w/KCl 20mEq 1,000 ML IV SCH ×2 (05:33→17:25)
--- NOTE | 2017-11-30 07:27 | Podiatric Progress Note ---
Assessment/Plan Patient Wesly Brunson is a 32 year old male who was admitted on Nov 21, 2017 at 13:34 with Problems: Assessment/Plan A/ 1) Ingrown bilateral great toes with granuloma formation 2) Quadriplegia P/ 1) Consent obtained 2) Partial nail avulsion was performed on bilateral great toes. No anesthesia needed as patient is insensate. Hemostasis achieved. Dressings applied. Patient tolerated procedure well. 3) Patient is on abx for surgical infection 4) Patient educated on post op care. Thank you Dr Tang Subjective Allergies: Coded Allergies: MORPHINE (Verified Allergy, Unknown, 11/21/17) Subjective Patient states that he has two ingrown toenails. He has no pain but he is concerned about infection. Objective Exam Last 24 Hour Vital Signs Date Time Temp Pulse Resp B/P (MAP) Pulse Ox O2 Delivery O2 Flow Rate FiO2 11/30/17 04:00 98.5 49 18 128/70 98 98.5 11/30/17 00:00 98.2 49 19 121/73 96 98.2 11/29/17 20:00 98.5 47 19 126/71 96 98.5 11/29/17 16:00 96.5 57 20 110/54 97 96.5 11/29/17 08:00 98.3 41 18 136/78 96 98.3 Microbiology Date/Time Source Procedure Growth Status 11/21/17 13:30 Blood Blood Culture - Final NO GROWTH AFTER 5 DAYS Complete 11/26/17 12:50 Wound Gram Stain - Final Resulted 11/26/17 12:50 Aerobic Culture - Preliminary Pseudomonas Aeruginosa Staphylococcus Sp Coag Neg Resulted 11/26/17 12:50 Wound Anaerobic Culture - Preliminary Resulted 11/22/17 05:30 Nose MRSA Culture - Final NO METHICILLIN RESISTANT STAPH AUREUS... Complete 11/22/17 03:30 Indwelling Cath Urine Culture - Final NO GROWTH AFTER 48 HOURS Complete 11/22/17 05:30 Rectal Mucosa VRE Culture - Final Enterococcus Faecalis - Vre Complete Musculoskeletal Muscle strength grading: grade 0 Assistive devices: wheelchair Vascular Pulses: 2 dorsalis pedis (R), 2 dorsalis pedis (L), 2 posterior tibial (R), 2 posterior tibial (L) Edema: 1+ (<2mm) foot (L), 1+ (<2mm) foot (R), 1+ (<2mm) ankle (L), 1+ (<2mm) ankle (R), 1+ (<2mm) leg (L), 1+ (<2mm) leg (R) Pedal hair present: Yes Temperature: within normal limits Neurological Light touch: insensate bilateral Reflexes: 0 achilles reflex s1 (R), 0 achilles reflex s1 (L), 0 achilles reflex s2 (R), 0 achilles reflex s2 (L) Dermatological Dermatological: nail abnormality - ingrown toenail bilateral hallux nails with granuloma formation Wound Assessment : Exudate Amount: Moderate Dermatological Narrative no ulcers or lesions noted Jesus Alberto Esteban DPM Nov 30, 2017 07:27
[2017-11-30 08:00] VITALS: BP 134/81
[2017-11-30] MEDS ORDERED: Surgicel 4in x 8in TOPIC ONE ×2 (08:21→08:22)
[2017-11-30] MEDS: Lactobacillus-GG tablet ORAL SCH ×3 (10:24→17:25)
[2017-11-30] MEDS: Vitamin A&D Oint 2oz Tube TOPIC SCH ×2 (10:24→20:59)
[2017-11-30] MEDS: Linezolid 600mg/300mL Premix IVPB SCH ×2 (10:25→20:58)
[2017-11-30] MEDS: Piperacillin/Tazobactam 3.375 GM in NS 110 ML IVPB SCH ×2 (10:25→16:00)
[2017-11-30] MEDS: Oxybutynin 5mg tab ORAL SCH ×3 (10:25→17:25)
[2017-11-30] MEDS: Heparin 5000 units/ml inj SUBQ SCH ×2 (10:26→20:59)
[2017-11-30] MEDS ORDERED: Tubing IV Secondary IV ONE (11:02)
[2017-11-30] MEDS ORDERED: NS 275ml ONE (11:02)
[2017-11-30 12:00] VITALS: BP 139/77
[2017-11-30 16:00] VITALS: BP 124/78
[2017-11-30] MEDS ORDERED: VANCO 1 GR1 GM/250 M IV (19:13)
[2017-11-30] MEDS ORDERED: CEFTAZIDIM2 GM/50 ML IV (19:15)
--- NOTE | 2017-11-30 19:43 | General Surgery Progress Note ---
General Surgery-Progress Note Subjective Symptoms: improved Objective Last 24 Hour Vital Signs Date Time Temp Pulse Resp B/P (MAP) Pulse Ox O2 Delivery O2 Flow Rate FiO2 11/30/17 16:00 97.8 45 20 124/78 99 97.8 11/30/17 12:00 97.9 44 20 139/77 96 97.9 11/30/17 08:00 98.0 45 20 134/81 97 98.0 11/30/17 04:00 98.5 49 18 128/70 98 98.5 11/30/17 00:00 98.2 49 19 121/73 96 98.2 11/29/17 20:00 98.5 47 19 126/71 96 98.5 I&O Intake and Output 11/29/17 11/30/17 19:00 07:00 Intake Total 1575.0 ml 1245 ml Output Total 2200 ml 1625 ml Balance -625.0 ml -380 ml Intake Oral 360 ml 120 ml IV Total 1215.0 ml 1125 ml Output Urine Total 2200 ml 1625 ml Wound: clean, dry, intact Drains: none Extremities: other - BUE and BLE exam at baseline Assessment Post-op Diagnosis Patient wound culture positive for Staph and Staph Plan Problems: (1) Wound infection after surgery Assessment & Plan: Patient s/p wound wash out for infection. Doing well. PICC line in place. D/C home with home abx (Vanco and ceftaz) Discussed follow-up with patient fo removal of sutures. DUNCAN GARCIA M.D. Nov 30, 2017 19:43
[2017-11-30 20:00] VITALS: BP 144/84
[2017-11-30] MEDS: Dyna-Hex 2% Top Sol 2oz TOPIC SCH (20:58)
--- NOTE | 2017-11-30 22:16 | General Progress Note ---
Assessment/Plan Status Narrative wound infection antibniotic has been arranged to go home willn eed vanco trough and bmp done willfoll Subjective Date patient seen: Nov 30, 2017 Time patient seen: 22:15 Constitutional: Reports: no symptoms HEENT: Reports: no symptoms Cardiovascular: Reports: no symptoms Respiratory: Reports: no symptoms Allergies: Coded Allergies: MORPHINE (Verified Allergy, Unknown, 11/21/17) Subjective wound igeting picc line Objective Last 24 Hour Vital Signs Date Time Temp Pulse Resp B/P (MAP) Pulse Ox O2 Delivery O2 Flow Rate FiO2 11/30/17 20:00 98.1 50 21 144/84 94 98.1 11/30/17 16:00 97.8 45 20 124/78 99 97.8 11/30/17 12:00 97.9 44 20 139/77 96 97.9 11/30/17 08:00 98.0 45 20 134/81 97 98.0 11/30/17 04:00 98.5 49 18 128/70 98 98.5 11/30/17 00:00 98.2 49 19 121/73 96 98.2 Intake and Output 11/29/17 11/30/17 19:00 07:00 Intake Total 1575.0 ml 1245 ml Output Total 2200 ml 1625 ml Balance -625.0 ml -380 ml Intake Oral 360 ml 120 ml IV Total 1215.0 ml 1125 ml Output Urine Total 2200 ml 1625 ml Height (Feet): 5 Height (Inches): 8.00 Weight (Pounds): 195 General Appearance: WD/WN Neck: non-tender Cardiovascular: normal rate, regular rhythm, no JVD Respiratory/Chest: lungs clear Objective has draingae on the wound cta s1,s2,rrr soft impression: AUTUMN BARDALES Nov 30, 2017 22:16
[2017-12-01] MEDS: Piperacillin/Tazobactam 3.375 GM in NS 110 ML IVPB SCH ×2 (00:15→09:08)
[2017-12-01 04:00] VITALS: BP 120/64
[2017-12-01] MEDS: NS w/KCl 20mEq 1,000 ML IV SCH (05:25)
[2017-12-01] MEDS: Linezolid 600mg/300mL Premix IVPB SCH (08:40)
[2017-12-01] MEDS: Oxybutynin 5mg tab ORAL SCH (08:41)
[2017-12-01] MEDS: Lactobacillus-GG tablet ORAL SCH (08:41)
[2017-12-01] MEDS: Heparin 5000 units/ml inj SUBQ SCH ×2 (08:46→08:58)
[2017-12-01] MEDS: Vitamin A&D Oint 2oz Tube TOPIC SCH (08:47)
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
[2017-12-01 12:00] VITALS: BP 136/83
--- NOTE | 2017-12-03 09:41 | Discharge Summary ---
Discharge Summary Hospital Course Date of Admission Nov 21, 2017 at 13:34 Date of Discharge Dec 01, 2017 at 13:00 Admitting Diagnosis post -op infection neck HPI Wesly Brunson is a 32 year old male who was admitted on Nov 21, 2017 at 13:34 for Post Op Infection Neck Hospital Course dc summary #[id number] Discharge Medications Continued Medications: Ceftazidime Pentahydrate/D5w (Ceftazidime 2 Gm Piggyback) 2 Gm/50 Ml Piggyback 2 GM IV EVERY 12 HOURS for 36 Days, BAG Gabapentin* (Gabapentin*) 400 Mg Capsule 400 MG ORAL THREE TIMES A DAY, CAP 0 Refills Oxybutynin Chloride (Oxybutynin Chloride) 5 Mg Tablet 5 MG ORAL TID, #30 TAB 0 Refills Oxycodone HCl/Acetaminophen (Percocet 10-325 mg Tablet) 1 Each Tablet 0.5-1 EACH PO EVERY 4 HOURS PRN for For Pain, #40 TAB Vancomycin/0.9 % Sod Chloride (Vanco 1 Gram/250 ml-0.9% NaCl) 1 Gm/250 Ml Plast..bag 1 GM IV EVERY 12 HOURS for 36 Days, BAG Discharge Condition Upon Discharge: stable Discharge Disposition Patient was discharged to Home with Home Health(06) Discharge Diagnoses: Discharge Instructions Discharge Instructions Special Instructions I have been assigned to complete a D/C Summary on this account. I was not involved in the patient management Sujey Kay NP ([place]) Dec 03, 2017 09:41
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
== END 2017-12-01 13:00 | disposition home health service (06) | DRG 863 ==
LOC: EMR 12:47 → 3E 13:34 → EDBEDREQ 14:25 → 4E 11-24 18:30
PROC: 0JJ Subcutaneous Tissue and Fascia, Inspection (ICD-10-PCS; 2017-11-25)
PROC: B518ZZA Fluoroscopy of Superior Vena Cava, Guidance (ICD-10-PCS; principal; 2017-11-26)
PROC: 02HV33Z Insertion of Infusion Device into Superior Vena Cava, Percutaneous Approach (ICD-10-PCS; principal; 2017-11-26)
PROC: 0HDRXZZ Extraction of Toe Nail, External Approach (ICD-10-PCS; 2017-11-30)
DX: T81.4XXA Infection following a procedure, initial encounter (principal); G82.20 Paraplegia, unspecified; L03.221 Cellulitis of neck; S14.109S Unspecified injury at unspecified level of cervical spinal cord, sequela; N31.9 Neuromuscular dysfunction of bladder, unspecified; N39.0 Urinary tract infection, site not specified; V89.2XXS Person injured in unspecified motor-vehicle accident, traffic, sequela; Z99.3 Dependence on wheelchair; L60.0 Ingrowing nail; B95.2 Enterococcus as the cause of diseases classified elsewhere; B96.5 Pseudomonas (aeruginosa) (mallei) (pseudomallei) as the cause of diseases classified elsewhere
CPT/HCPCS: 36415; 36569; 72156; 76937; 80048; 80053; 80202; 81001; 82248; 85025; 85610; 85730; 87040; 87070; 87075; 87081; 87086; 87181; 87205; 93970; 94003; 94150; 99285; A9585; J2250; J2405; J2710